=== PATIENT | male | born 1995 | race Caucasian/White ===

== ENCOUNTER 2016-06-30 21:12 | Emergency (ER) | payer OTHER ==
[~2016-06-30] VITALS: Ht 172.7 cm; Wt 49.1 kg
[2016-06-30 23:09] LABS: APPEARANCE,URINE TURBID (CLEAR); GLUCOSE, URINE (UA) NEGATIVE (NEGATIVE); KETONES,URINE NEGATIVE (NEGATIVE); LEUKOCYTE ESTERASE ,URINE NEGATIVE (NEGATIVE); OCCULT BLOOD,URINE NEGATIVE (NEGATIVE); PH,URINE 7.5 (5.0-8.0); PROTEIN,URINE NEGATIVE (NEGATIVE)
[2016-06-30] MEDS ORDERED: LORazepam 2 MG TABLET PO ONE (23:30)
[2016-06-30 23:38] LABS: AMORPHOUS SEDIMENT,UR Moderate /LPF (None Seen); RBC,URINE None Seen /HPF (0-2); WBC,URINE 0-2 /HPF (0-5)
[2016-07-01 00:30] VITALS: BP 119/80
== END 2016-07-01 00:55 | disposition home or self-care (01) ==
LOC: MERGE 21:13 → EMS 21:13
DX: F41.9 Anxiety disorder, unspecified (principal)
CPT/HCPCS: 99284

== ENCOUNTER 2016-07-18 00:55 | Emergency (ER) | payer OTHER ==
[~2016-07-18] VITALS: Ht 177.8 cm; Wt 61.4 kg
[2016-07-18] MEDS ORDERED: HALOPERIDOL LACTATE 5 MG/ML VIAL IM ONE (01:15)
[2016-07-18] MEDS ORDERED: DiphenhydrAMINE HCL 50 MG/ML VIAL IM ONE (01:15)
[2016-07-18] MEDS ORDERED: LORazepam 2 MG/ML VIAL IM ONE (01:15)
[2016-07-18] MEDS ORDERED: SODIUM CHLORIDE 0.9% 1,000 ML IV ONE (01:30)
[2016-07-18 02:10] LABS: ANION GAP 12 mmol/L (8-16); CALCIUM, TOTAL 8.4 mg/dL (8.8-10.5); CARBON DIOXIDE 25 mmol/L (22-29); CHLORIDE 104 mmol/L (98-107); CREATININE 0.83 mg/dL (0.60-1.30); GLOMERULAR FILTR. RATE CALC > 60 mL/min (>60); POTASSIUM 3.2 mmol/L (3.5-5.1); SODIUM SERUM 141 mmol/L (136-145); UREA NITROGEN, BLOOD 9 mg/dL (7-18)
[2016-07-18 02:16] LABS: ALANINE AMINOTRANSFERASE 19 U/L (12-78); ALBUMIN 4.1 g/dL (3.4-5.0); ASPARTATE AMINOTRANSFERASE 14 U/L (15-37); BILIRUBIN,TOTAL 0.4 mg/dL (0.1-1.0)
[2016-07-18 02:20] LABS: BASOPHILS % (AUTO) 0.5 % (0.0-2.0); EOSINOPHILS % (AUTO) 0.1 % (1.0-6.0); HEMATOCRIT 42.1 % (41-53); HEMOGLOBIN 13.9 g/dL (13.5-17.5); LYMPHOCYTES # (AUTO) 1.2 K/uL (1.0-4.8); LYMPHOCYTES % (AUTO) 9.7 % (22.0-44.0); MEAN CORPUSCULAR HEMOGLOBIN 31.9 pg (26.0-34.0); MEAN CORPUSCULAR VOLUME 97 fL (80-100); MONOCYTES # (AUTO) 0.6 K/uL (0.1-1.0); MONOCYTES % (AUTO) 4.8 % (2.0-9.0); NEUTROPHILS # (AUTO) 10.5 K/uL (1.8-7.7); NEUTROPHILS % (AUTO) 84.9 % (40.0-70.0); PLATELET COUNT (AUTO) 219 K/uL (150-450); RED BLOOD CELL COUNT(AUTO) 4.36 MIL/uL (4.50-5.90); RED CELL DISTRIBUTION WIDTH 13.7 % (11.5-14.5); WHITE BLOOD COUNT (AUTO) 12.4 K/uL (4.5-11.0)
[2016-07-18] MEDS ORDERED: POTASSIUM CHL 10 MEQ/WATER 50 ML IV ONE (04:30)
[2016-07-18 11:13] VITALS: BP 110/65
== END 2016-07-18 11:25 | disposition home or self-care (01) ==
LOC: EMS 00:57 → EDBD 00:57 → EMS 11:25
DX: R41.82 Altered mental status, unspecified (principal); F23 Brief psychotic disorder
CPT/HCPCS: 36415; 51702; 80053; 80307; 85025; 96360; 96361; 96372; 99285; G0480; J1200; J1630; J2060; J3480; J7030

== ENCOUNTER 2017-02-15 10:47 | Emergency (ER) | payer MEDICAID, OTHER ==
[~2017-02-15] VITALS: Ht 170.2 cm; Wt 50.0 kg
[2017-02-15 11:42] VITALS: BP 123/67
[2017-02-15] MEDS ORDERED: PredniSONE 20 MG TABLET PO ONE (11:45)
[2017-02-15] MEDS ORDERED: DiphenhydrAMINE HCL 25 MG CAPSULE PO ONE (11:45)
== END 2017-02-15 12:03 | disposition home or self-care (01) ==
LOC: EMS 10:49
DX: R21 Rash and other nonspecific skin eruption (principal); R03.0 Elevated blood-pressure reading, without diagnosis of hypertension
CPT/HCPCS: 99283; J7512

== ENCOUNTER 2025-03-06 13:03 | Emergency (ER) | payer BC, MEDICAID ==
[~2025-03-06] VITALS: Ht 170.2 cm; Wt 59.1 kg
[2025-03-06 13:16] VITALS: TEMP 98.1
[2025-03-06 13:58] LABS: PLATELET COUNT (AUTO) 323 K/uL (150-450); RED BLOOD CELL COUNT(AUTO) 5.24 MIL/uL (4.50-5.90); RED CELL DISTRIBUTION WIDTH 13.0 % (11.5-14.5); WHITE BLOOD COUNT (AUTO) 7.3 K/uL (4.5-11.0)
[2025-03-06 14:03] LABS: CALCIUM, TOTAL 9.1 mg/dL (8.8-10.5); CREATININE 0.78 mg/dL (0.60-1.30); GLOMERULAR FILTR. RATE CALC > 60 mL/min (>60); GLUCOSE,RANDOM 76 mg/dL (70-110); SODIUM SERUM 139 mmol/L (136-145); UREA NITROGEN, BLOOD 8 mg/dL (7-18)
[2025-03-06 14:10] LABS: APPEARANCE,URINE CLEAR (CLEAR); GLUCOSE, URINE (UA) NEGATIVE (NEGATIVE); LEUKOCYTE ESTERASE ,URINE NEGATIVE (NEGATIVE); NITRATE,URINE NEGATIVE (NEGATIVE); OCCULT BLOOD,URINE SMALL (NEGATIVE); SPECIFIC GRAVITIY, URINE 1.033 (1.003-1.030)
[2025-03-06 14:39] LABS: ALCOHOL, BLOOD (SERUM) < 3 mg/dL (0-10)
[2025-03-06 14:42] LABS: ASPARTATE AMINOTRANSFERASE 34 U/L (15-37); TOTAL PROTEIN, SERUM 7.7 g/dL (6.4-8.2)
[2025-03-06 14:43] LABS: TROPONIN I-HIGH SENSITIVITY 11 ng/L (<76)
[2025-03-06] MEDS: FAMOTIDINE 20 MG/2 ML VIAL IVP ONE (14:45)
[2025-03-06] MEDS: MAG HYDROX/ALUMINUM HYD/SIMETH 30 ML SUSPENSION UDCUP PO ONE (14:45)
[2025-03-06] MEDS: ONDANSETRON HCL 4 MG/2 ML VIAL IVP ONE (14:46)
[2025-03-06] MEDS: KETOROLAC TROMETHAMINE 30 MG/ML VIAL IVP ONE (14:46)
[2025-03-06] MEDS: SODIUM CHLORIDE 0.9% 1,000 ML IV ONE (14:47)
[2025-03-06] MEDS ORDERED: 0.9% SODIUM CHLORIDE 10 ML SYRINGE IVP ONE (14:52)
[2025-03-06] MEDS ORDERED: IOHEXOL 350 MG/ML 100 ML VIAL ONE (14:52)
[2025-03-06] MEDS ORDERED: SODIUM CHLORIDE 0.9% 100 ML ONE (14:52)
[2025-03-06] MEDS: SODIUM CHLORIDE 0.9% 800 ML IV ONE (15:50)
[2025-03-06] MEDS ORDERED: ONDA-104 PO (16:01)
[2025-03-06 17:03] VITALS: BP 110/70; PULSE 95; RESP 14; O2SAT 99
== END 2025-03-06 17:05 | disposition home or self-care (01) ==
LOC: EMS 13:03
DX: K52.9 Noninfective gastroenteritis and colitis, unspecified (principal); R11.2 Nausea with vomiting, unspecified; R10.31 Right lower quadrant pain; R10.32 Left lower quadrant pain
CPT/HCPCS: 99285; 74177; 96374; 96361; 96375; 80048; 80076; 83690; 84484; 85025; 85610; 85730; 36415; 93005; 81001; J1885; G0480; Q9967; J3490; J2405; J7030; J7050